=== PATIENT | female | born 2000 | race Caucasian/White ===

== ENCOUNTER 2021-09-19 14:52 | Emergency (ER) | payer BC ==
[~2021-09-19] VITALS: Ht 165.1 cm; Wt 86.4 kg
[2021-09-19 14:59] VITALS: TEMP 98.3
[2021-09-19 15:15] LABS: BASO % 0.2 % (0.0-2.0); EOS % 0.1 % (0.0-4.0); GRAN # 6.5 K/mm3 (1.4-6.5); GRAN % 70.7 % (42.2-75.2); HEMATOCRIT 44.6 % (37.0-47.0); HEMOGLOBIN 15.1 g/dl (12.5-16.0); LYMPH # 2.3 K/mm3 (1.2-3.4); LYMPH % 25.1 % (20.0-51.0); MEAN CELL VOLUME 88 fl (80.0-100.0); MEAN CORPUSCULAR HEMOGLOBIN 30 pg (27-31); MEAN CORPUSCULAR HGB CONC 34 g/dl (33.0-37.0); MEAN PLATELET VOLUME 10.9 fl (7.4-10.4); MONO # 0.4 K/mm3 (0.1-0.6); MONO % 3.8 % (1.7-9.3); PLATELET COUNT 188 K/mm3 (130-400); RED BLOOD COUNT 5.07 M/mm3 (4.10-5.30); REDCELL DISTRIBUTION WIDTH-CV 13.1 % (11.5-14.5)
[2021-09-19 15:31] LABS: ALBUMIN 3.8 gm/dL (3.5-5.0); BILIRUBIN,TOTAL 0.3 mg/dL (0.2-1.2); CALCIUM 8.9 mg/dL (8.4-10.2); CREATININE, serum 0.93 mg/dL (0.57-1.11); POTASSIUM 3.7 mmol/L (3.5-4.5); TOTAL PROTEIN 7.1 gm/dL (6.2-8.1)
[2021-09-19 15:37] LABS: ERYTHROCYTE SEDIMENTATION RATE 6 mm/hr (0-20)
[2021-09-19 17:20] VITALS: BP 124/80; PULSE 89
== END 2021-09-19 17:20 | disposition home or self-care (01) ==
LOC: COL.ER 14:52
PROVIDERS: Emergency Medicine
DX: R21 Rash and other nonspecific skin eruption (principal); T38.0X5A Adverse effect of glucocorticoids and synthetic analogues, initial encounter; T36.8X5A Adverse effect of other systemic antibiotics, initial encounter; J10.1 Influenza due to other identified influenza virus with other respiratory manifestations